=== PATIENT | male | born 1970 | race Caucasian/White ===

== ENCOUNTER 2019-08-28 14:42 | Emergency (ER) | payer MEDICAID ==
[2019-08-28] MEDS ORDERED: Sodium Chloride 0.9% 10 ML Syringe FLUSH PRN (14:51)
[2019-08-28] MEDS ORDERED: Aspirin 81 MG Tab.Chew PO ONE (14:52)
--- NOTE | 2019-08-28 15:02 | EDM.PDOC ---
ED HPI GENERAL MEDICAL PROBLEM - General Chief Complaint: Chest Pain Stated Complaint: CHEST PAIN Time Seen by Provider: 08/28/19 14:45 Source of Information: Reports: Patient, RN Notes Reviewed History Limitations: Reports: No Limitations - History of Present Illness INITIAL COMMENTS - FREE TEXT/NARRATIVE: Patient is a 48-year-old male who presents to the ED for the evaluation of his sudden onset chest pain. Patient notes that 30 minutes prior to arrival to the ER, he was talking outside, when he developed some sharp stabbing type pain to his midsternal area. Patient became nauseated and sweaty with this. Patient states that the pain seems to worsen with deep breathing, and when you put pressure on it, he states that when you stand up, or take pressure off the chest it seems to make it better. He notes he has had this pain before, and it goes away on its own. Patient denies any other sick-like symptoms, fever/chills, shortness of breath or cough, current nausea/vomiting/diarrhea. He denies any other cardiac history like MIs. Mid-Sternal Pain Score (Numeric/FACES): 9 - Related Data Allergies Allergy/AdvReac Type Severity Reaction Status Date / Time Penicillins Allergy Rash Verified 08/28/19 14:47 Past Medical History Endocrine/Metabolic History: Reports: Obesity/BMI 30+ - Infectious Disease History Infectious Disease History: Reports: Chicken Pox - Past Surgical History HEENT Surgical History: Reports: Tonsillectomy GI Surgical History: Reports: Other (See Below) Other GI Surgeries/Procedures: exploratory laparoscopy Social & Family History - Family History Cardiac: Reports: Prior Cardiac Arrest - Tobacco Use Smoking Status *Q: Never Smoker Second Hand Smoke Exposure: No ED ROS GENERAL - Review of Systems Review Of Systems: See Below Constitutional: Reports: Diaphoresis. Denies: Fever, Chills Respiratory: Denies: Shortness of Breath, Cough Cardiovascular: Reports: Chest Pain (mid sternal chest pain). Denies: Dyspnea on Exertion, Lightheadedness, Orthopnea, Palpitations GI/Abdominal: Reports: Nausea. Denies: Abdominal Pain, Constipation, Diarrhea, Vomiting ED EXAM, GENERAL - Physical Exam Exam: See Below Exam Limited By: No Limitations General Appearance: Alert, WD/WN, No Apparent Distress Eye Exam: Bilateral Eye: EOMI, Normal Inspection, PERRL Ears: Normal External Exam Throat/Mouth: Normal Inspection, Normal Lips, Normal Teeth, Normal Gums, Normal Oropharynx, Normal Voice, No Airway Compromise Head: Atraumatic Neck: Normal Inspection Respiratory/Chest: No Respiratory Distress, Lungs Clear, Normal Breath Sounds, No Accessory Muscle Use, Chest Non-Tender Cardiovascular: Normal Peripheral Pulses, Regular Rate, Rhythm, No Edema, No Murmur Peripheral Pulses: 3+: Radial (L), Radial (R) GI/Abdominal: Normal Bowel Sounds, Soft, Non-Tender, No Distention, No Mass Neurological: Alert, Oriented, Normal Cognition, No Motor/Sensory Deficits Psychiatric: Normal Affect, Normal Mood Skin Exam: Warm, Dry, Intact, Normal Color, No Rash EKG INTERPRETATION EKG Date: 08/28/19 Time: 14:44 Rhythm: NSR Rate (Beats/Min): 86 [place]: Normal P-Wave: Present QRS: Normal ST-T: Normal QT: Normal Comparison: NA - No Prior EKG EKG Interpretation Comments: No obvious ischemia or acute ST changes noted, reviewed by myself and Dr. Rios. Course - Vital Signs Last Recorded V/S: Last Vital Signs Temp 97.6 F 08/28/19 14:48 Pulse 87 08/28/19 14:48 Resp 16 08/28/19 14:48 BP 146/90 H 08/28/19 14:48 Pulse Ox 95 08/28/19 14:48 - Orders/Labs/Meds Orders: Active Orders 24 hr Category Date Time Status EKG Documentation Completion [RC] STAT Care 08/28/19 14:51 Active Peripheral IV Care [RC] . DIRECTED Care 08/28/19 14:51 Active Peripheral IV Insertion Adult [OM.PC] Stat Oth 08/28/19 14:51 Ordered Labs: Laboratory Tests 08/28/19 08/28/19 08/28/19 Range/Units 14:50 14:50 14:50 WBC 6.34 (4.23-9.07) K/mm3 RBC 5.20 (4.63-6.08) M/mm3 Hgb 15.5 (13.7-17.5) gm/dl Hct 46.5 (40.1-51.0) % MCV 89.4 (79.0-92.2) fl MCH 29.8 (25.7-32.2) pg MCHC 33.3 (32.2-35.5) g/dl RDW Std Deviation 42.9 (35.1-43.9) fL Plt Count 187 (163-337) K/mm3 MPV 9.8 (9.4-12.3) fl Neut % (Auto) 56.6 (34.0-67.9) % Lymph % (Auto) 30.1 (21.8-53.1) % [place] % (Auto) 9.5 (5.3-12.2) % Eos % (Auto) 3.2 (0.8-7.0) Baso % (Auto) 0.6 (0.1-1.2) % Neut # (Auto) 3.59 (1.78-5.38) K/mm3 Lymph # (Auto) 1.91 (1.32-3.57) K/mm3 [place] # (Auto) 0.60 (0.30-0.82) K/mm3 Eos # (Auto) 0.20 (0.04-0.54) K/mm3 Baso # (Auto) 0.04 (0.01-0.08) K/mm3 PT 10.8 (9.7-12.0) SECONDS INR 0.99 APTT 25 (22-31) SECONDS Sodium 143 (136-145) mEq/L Potassium 4.1 (3.5-5.1) mEq/L Chloride 107 (98-107) mEq/L Carbon Dioxide 25 (21-32) mEq/L Anion Gap 15.1 H (5-15) BUN 22 H (7-18) mg/dL Creatinine 1.2 (0.7-1.3) mg/dL Est Cr Clr Drug Dosing 85.63 mL/min Estimated GFR (MDRD) > 60 (>60) mL/min BUN/Creatinine Ratio 18.3 H (14-18) Glucose 117 H (74-106) mg/dL Calcium 8.7 (8.5-10.1) mg/dL Magnesium 1.8 (1.8-2.4) mg/dl Total Bilirubin 0.6 (0.2-1.0) mg/dL AST 41 H (15-37) U/L ALT 88 H (16-63) U/L Alkaline Phosphatase 70 (46-116) U/L Troponin I < 0.017 (0.00-0.056) ng/mL NT-Pro-B Natriuret Pep (0-125) pg/mL Total Protein 7.4 (6.4-8.2) g/dl Albumin 3.6 (3.4-5.0) g/dl Globulin 3.8 gm/dL Albumin/Globulin Ratio 1.0 (1-2) /09/09 Range/Units 14:50 WBC (4.23-9.07) K/mm3 RBC (4.63-6.08) M/mm3 Hgb (13.7-17.5) gm/dl Hct (40.1-51.0) % MCV (79.0-92.2) fl MCH (25.7-32.2) pg MCHC (32.2-35.5) g/dl RDW Std Deviation (35.1-43.9) fL Plt Count (163-337) K/mm3 MPV (9.4-12.3) fl Neut % (Auto) (34.0-67.9) % Lymph % (Auto) (21.8-53.1) % Row[place] % (Auto) (5.3-12.2) % Eos % (Auto) (0.8-7.0) Baso % (Auto) (0.1-1.2) % Neut # (Auto) (1.78-5.38) K/mm3 Lymph # (Auto) (1.32-3.57) K/mm3 [place] # (Auto) (0.30-0.82) K/mm3 Eos # (Auto) (0.04-0.54) K/mm3 Baso # (Auto) (0.01-0.08) K/mm3 PT (9.7-12.0) SECONDS INR APTT (22-31) SECONDS Sodium (136-145) mEq/L Potassium (3.5-5.1) mEq/L Chloride (98-107) mEq/L Carbon Dioxide (21-32) mEq/L Anion Gap (5-15) BUN (7-18) mg/dL Creatinine (0.7-1.3) mg/dL Est Cr Clr Drug Dosing mL/min Estimated GFR (MDRD) (>60) mL/min BUN/Creatinine Ratio (14-18) Glucose (74-106) mg/dL Calcium (8.5-10.1) mg/dL Magnesium (1.8-2.4) mg/dl Total Bilirubin (0.2-1.0) mg/dL AST (15-37) U/L ALT (16-63) U/L Alkaline Phosphatase (46-116) U/L Troponin I (0.00-0.056) ng/mL NT-Pro-B Natriuret Pep 27 (0-125) pg/mL Total Protein (6.4-8.2) g/dl Albumin (3.4-5.0) g/dl Globulin gm/dL Albumin/Globulin Ratio (1-2) Meds: Medications Discontinued Medications Generic Name Dose Route Start Last Admin Trade Name Freq PRN Reason Stop Dose Admin Aspirin 324 mg 08/28/19 14:52 08/28/19 14:55 Aspirin PO 08/28/19 14:53 324 mg ONETIME ONE Administration Sodium Chloride 10 ml 08/28/19 14:51 08/28/19 14:56 Saline Flush FLUSH 10 ml ASDIRECTED PRN Administration Keep Vein Open - Re-Assessments/Exams Free Text/Narrative Re-Assessment/Exam: 08/28/19 15:01 Patient presents to the ED for the evaluation of his sudden onset midsternal chest pain. Does sound pleuritic in nature, as it seems to worsen with deep breathing. Nonetheless he will have cardiac work-up to include EKG, chest x- ray, laboratory evaluation and have ordered 324 mg aspirin for initial management. 08/28/19 15:41 Labs have returned, and are unremarkable, troponin is also undetectably low. At this time this is likely that this can be more pleuritic pain in nature. We will have him trial ibuprofen, see if this does not help improve symptoms. Departure - Departure Time of Disposition: 15:42 Disposition: Home, Self-Care 01 Condition: Good Clinical Impression: Chest pain, pleuritic Instructions: Nonspecific Chest Pain, Adult, [id number] Referrals: PCP,None [Primary Care Provider] - Forms: ED Department Discharge Additional Instructions: You were evaluated in the ER today regarding your left-sided chest pain. Laboratory evaluation, chest x-ray and EKG were done at today's visit. EKG demonstrates no sign of a heart attack, labs were also not suggestive of any heart attack. Chest x-ray shows no other acute findings. Due to the pain worsening when you take a deep breath, it is most likely this is pleuritic chest pain in nature, which is an inflammation of the lung lining. Treatment of this will be anti-inflammatories, please take 600 mg ibuprofen every 6 hours as needed for further pain relief. Do not exceed 3200 mg of ibuprofen in a 24-hour time span. If you have not already done so, it would be to your benefit to establish with a primary care provider, and think about getting a cardiac stress test done to further rule out any other cardiac etiology. Please call [phone] to establish care with a primary care provider of choice. Please return to the ER at any time if your symptoms change or worsen. Sepsis Event Note (ED) - Evaluation Sepsis Screening Result: No Definite Risk - Focused Exam Vital Signs: Vital Signs Temp Pulse Resp BP Pulse Ox 08/28/19 14:48 97.6 F 87 16 146/90 H 95 - My Orders Last 24 Hours: My Active Orders 08/28/19 14:51 EKG Documentation Completion [RC] STAT Peripheral IV Care [RC] . DIRECTED Peripheral IV Insertion Adult [OM.PC] Stat - Assessment/Plan Last 24 Hours: My Active Orders 08/28/19 14:51 EKG Documentation Completion [RC] STAT Peripheral IV Care [RC] . DIRECTED Peripheral IV Insertion Adult [OM.PC] Stat
--- NOTE | 2019-08-28 15:14 | CR ---
Chest: Frontal view of the chest was obtained. Comparison: No previous chest imaging. Heart size and mediastinum are normal. Lungs are clear. Bony structures are grossly intact. Impression: 1. Nothing acute is seen on frontal chest x-ray. Diagnostic code #1 This report was dictated in MDT
== END 2019-08-28 16:10 | disposition home or self-care (01) ==
LOC: JD.ED 14:42
DX: R07.81 Pleurodynia (principal); E66.9 Obesity, unspecified; Z68.42 Body mass index [BMI] 45.0-49.9, adult; Z88.0 Allergy status to penicillin
CPT/HCPCS: 36415; 71045; 80053; 83735; 83880; 84484; 85025; 85610; 85730; 93005; 99285; A9270; 93010; 99284

== ENCOUNTER 2019-11-29 06:51 | Day surgery (SDC) | payer MEDICAID ==
[~2019-11-29 06:51] MED LIST: Lactated Ringers 1,000 ML IV SCH; Lidocaine 1%/Sod Bicarbonate in NS 8.4% 1 ML Syringe IDERM PRN; Sodium Chloride 0.9% 10 ML Syringe FLUSH PRN
[2019-11-29] MEDS ORDERED: Propofol 200 MG/20 ML SDV ONE ×2 (07:04→08:02)
[2019-11-29] MEDS ORDERED: Lidocaine 1% 4 ML ONE (07:05)
[2019-11-29] MEDS ORDERED: fentaNYL 100 MCG/2 ML SDV ONE (07:06)
[2019-11-29] MEDS ORDERED: Midazolam 1 MG/ML 2 ML SDV ONE ×2 (07:06→08:11)
[2019-11-29] MEDS ORDERED: Bupivacaine 0.5%/EPINEPHrine 1:200,000 50 ML MDV ONE (07:07)
[2019-11-29] MEDS ORDERED: Lidocaine 1% with EPINEPHrine 1:100,000 20 ML MDV ONE (07:07)
--- NOTE | 2019-11-29 07:19 | PCM.PREANE ---
Preanesthetic Assessment - Anesthesia/Transfusion/Family Hx Anesthesia History: Prior Anesthesia Without Reaction Family History of Anesthesia Reaction: No Transfusion History: No Prior Transfusion(s) - Review of Systems General: No Symptoms Pulmonary: No Symptoms Cardiovascular: No Symptoms Gastrointestinal: No Symptoms Neurological: No Symptoms Other: Reports: None - Physical Assessment NPO Status Date: 11/28/19 NPO Status Time: 22:00 ASA Class: 2 Mental Status: Alert & Oriented x3 Airway Class: Mallampati = 2 Dentition: Reports: Normal Dentition Thyro-Mental Finger Breadths: 3 Mouth Opening Finger Breadths: 3 ROM/Head Extension: Full Lungs: Clear to Auscultation, Normal Respiratory Effort Cardiovascular: Regular Rate, Regular Rhythm - Allergies Allergies/Adverse Reactions: Allergies Allergy/AdvReac Type Severity Reaction Status Date / Time Penicillins Allergy Rash Verified 11/28/19 13:48 - Acknowledgements Anesthesia Type Planned: MAC Pt an Appropriate Candidate for the Planned Anesthesia: Yes Alternatives and Risks of Anesthesia Discussed w Pt/Guardian: Yes Pt/Guardian Understands and Agrees with Anesthesia Plan: Yes PreAnesthesia Questionnaire HEENT History: Reports: Impaired Vision, Other (See Below) Other HEENT History: wears glasses Cardiovascular History: Reports: None, Hypertension, SOB on Exertion Respiratory History: Reports: SOB Gastrointestinal History: Reports: GERD, Other (See Below) Genitourinary History: Reports: Other (See Below) Other Genitourinary History: frequency PATROL AGENT History: Reports: None Musculoskeletal History: Reports: None Neurological History: Reports: None Psychiatric History: Reports: None Endocrine/Metabolic History: Reports: Obesity/BMI 30+ Hematologic History: Reports: None Immunologic History: Reports: None Oncologic (Cancer) History: Reports: None - Infectious Disease History Infectious Disease History: Reports: Chicken Pox - Past Surgical History Head Surgeries/Procedures: Reports: None HEENT Surgical History: Reports: Tonsillectomy Cardiovascular Surgical History: Reports: None Respiratory Surgical History: Reports: None GI Surgical History: Reports: Colonoscopy, EGD, Other (See Below) Other GI Surgeries/Procedures: exploratory laparotomy- found a fat mass in small intestine, was removed 2009 Female Surgical History: Reports: Breast Implant Male Surgical History: Reports: None Endocrine Surgical History: Reports: None Neurological Surgical History: Reports: None Musculoskeletal Surgical History: Reports: None Oncologic Surgical History: Reports: None Dermatological Surgical History: Reports: None - SUBSTANCE USE Smoking Status *Q: Never Smoker Days Per Week of Alcohol Use: 1 Number of Drinks Per Day: 2 Total Drinks Per Week: 2 Recreational Drug Use History: No - HOME MEDS Home Medications: Home Meds . [No Known Home Meds] 11/28/19 [History] - CURRENT (IN HOUSE) MEDS Current Meds: Current Medications Lactated Ringer's (Ringers, Lactated) 1,000 mls @ 125 mls/hr IV ASDIRECTED VENECIA Stop: 11/29/19 23:00 Influenza Virus Vaccine (Fluzone Quad Syringe) 60 mcg IM .ONCE ONE Stop: 11/29/19 09:01 Lidocaine/Sodium Bicarbonate (Buffered Lidocaine 1% In Ns 8.4%) 0.25 ml IDERM ONETIME PRN PRN Reason: Prior to IV Start Stop: 11/29/19 18:00 Sodium Chloride (Saline Flush) 10 ml FLUSH ASDIRECTED PRN PRN Reason: Keep Vein Open Stop: 11/29/19 18:00 Discontinued Medications Bupivacaine HCl/Epinephrine Bitart (Marcaine 0.5%/Epinephrine 1:200,000) Confirm Administered Dose 50 ml .ROUTE .STK-MED ONE Stop: 11/29/19 07:08 Fentanyl (Sublimaze) Confirm Administered Dose 100 mcg .ROUTE .STK-MED ONE Stop: 11/29/19 07:07 Lidocaine HCl (Xylocaine-Mpf 1%) Confirm Administered Dose 4 mls @ as directed .ROUTE .STK-MED ONE Stop: 11/29/19 07:06 Lidocaine/Epinephrine (Xylocaine 1% With Epinephrine 1:100,000) Confirm Administered Dose 40 ml .ROUTE .STK-MED ONE Stop: 11/29/19 07:08 Midazolam HCl (Versed 1 Mg/Ml) Confirm Administered Dose 2 mg .ROUTE .STK-MED ONE Stop: 11/29/19 07:07 Propofol (Diprivan 20 Ml) Confirm Administered Dose 200 mg .ROUTE .STK-MED ONE Stop: 11/29/19 07:05
[2019-11-29] MEDS ORDERED: Ketorolac 30 MG/ML SDV ONE (08:35)
[2019-11-29] MEDS ORDERED: Ondansetron 4 MG/2 ML SDV ONE (08:35)
--- NOTE | 2019-11-29 08:51 | PCM48HPAN ---
Post Anesthesia Note - EVALUATION WITHIN 48HRS OF ANESTHETIC Vital Signs in Normal Range: Yes Patient Participated in Evaluation: Yes Respiratory Function Stable: Yes Airway Patent: Yes Cardiovascular Function Stable: Yes Hydration Status Stable: Yes Pain Control Satisfactory: Yes Nausea and Vomiting Control Satisfactory: Yes Mental Status Recovered: Yes Vital Signs: Last Vital Signs Temp 36.1 C 11/29/19 07:24 Pulse 92 11/29/19 07:24 Resp 20 11/29/19 07:24 BP 150/94 H 11/29/19 07:24 Pulse Ox
--- NOTE | 2019-11-29 08:59 | PCM.PRNOTE ---
- Free Text/Narrative Note: Date: 11/29/2019 Operation: excision of right groin lipoma Surgeon: Shin Coats MD Operative findings: ~8 cm well circumscribed lipomatous mass in the superficial area of the right groin, with vascular pedicle. 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 Detailed Report: The patient was taken to the operating room and placed supine on the table. Time out was performed and monitored anesthesia care initiated. An ellipse was marked over the lesion, and 20 cc 0.5% marcaine was injected intradermally along this line overlying the palpable lesion. A 15 blade scalpel was used to incise down to subcutaneous fat along the marked ellipse. The overlying skin was excised. The lipoma easily from surrrounding tissue except at the apical region, where it tapered down to a diameter of about 1 cm and extended into deep er tissue superiorly. This did not seem to be in close proximity to the femoral vessels, and did not appear to be a femoral hernia as there was no peritoneal sac. The apical area appeared to be a vascular pedicle. This was clamped and ligated with a 0 silk suture, and the lipoma was amputated. The specimen was sent for pathologic analysis. The wound bed was clean and dry. The deep dermal layer was closed with interrupted 3-0 vicryl silk sutures. The skin was closed with an absorbable running subcuticular stitch and dressed with dermabond. The patient tolerated the procedure well.
[2019-11-29] MEDS ORDERED: FLU VACC QS2020-21(6MOS UP)/PF 60 MCG/0.5 ML SYRINGE IM ONE (09:00)
== END 2019-11-29 09:38 | disposition home or self-care (01) ==
LOC: JD.SDS 06:51
PROVIDERS: ATTEND Surgery
DX: D17.1 Benign lipomatous neoplasm of skin and subcutaneous tissue of trunk (principal); R03.0 Elevated blood-pressure reading, without diagnosis of hypertension; E66.9 Obesity, unspecified; I10 Essential (primary) hypertension; Z98.890 Other specified postprocedural states; Z01.812 Encounter for preprocedural laboratory examination; Z20.828 Contact with and (suspected) exposure to other viral communicable diseases; Z68.42 Body mass index [BMI] 45.0-49.9, adult; Z88.0 Allergy status to penicillin
CPT/HCPCS: 21931; 90686; J1885; J2001; J2250; J2405; J2704; J3010; J3490; J7120; 00400; G0008

== ENCOUNTER 2019-12-01 11:53 | Emergency (ER) | payer MEDICAID ==
[2019-12-01] MEDS ORDERED: Lidocaine 1% 10 ML MDV INJECT ONE (13:50)
--- NOTE | 2019-12-01 13:57 | EDM.PDOC ---
ED HPI GENERAL MEDICAL PROBLEM - General Chief Complaint: Abdominal Pain Stated Complaint: LOWER ABDOMINAL PAIN/POST SURGERY Time Seen by Provider: 12/01/19 12:12 Source of Information: Reports: Patient History Limitations: Reports: No Limitations - History of Present Illness INITIAL COMMENTS - FREE TEXT/NARRATIVE: Patient is a 49-year-old male presenting to the emergency department with concerns of a possible infection to his surgical wound on his right upper thigh. Patient also was concerned that he had a transient episode of left lower quadrant abdominal pain prior to coming to the ER. This has since resolved and he has had no recurrence of pain. He had a large lipoma removed 2 days ago with general surgeon, Dr. Coats. He states that since that time it is been getting progressively more red swollen, and painful. He thought that the abdominal pain he had earlier may be related to an infection forming in the wound. He denies any fever or chills. Right Groin Pain Score (Numeric/FACES): 1 - Related Data Allergies Allergy/AdvReac Type Severity Reaction Status Date / Time Penicillins Allergy Rash Verified 12/01/19 12:07 Home Meds: Home Meds oxyCODONE 5 mg PO Q4H PRN #10 tab 11/29/19 [Rx] Acetaminophen [Tylenol] 650 mg PO Q4H PRN 12/01/19 [History] Clindamycin HCl 450 mg PO Q8H #50 capsule 12/01/19 [Rx] Past Medical History HEENT History: Reports: Impaired Vision, Other (See Below) Other HEENT History: wears glasses Cardiovascular History: Reports: Hypertension, SOB on Exertion Respiratory History: Reports: SOB Gastrointestinal History: Reports: GERD Genitourinary History: Reports: Other (See Below) Other Genitourinary History: frequency RESIDENTIAL INSURANCE INSPECTOR History: Reports: None Musculoskeletal History: Reports: None Neurological History: Reports: None Psychiatric History: Reports: None Endocrine/Metabolic History: Reports: Obesity/BMI 30+ Hematologic History: Reports: None Immunologic History: Reports: None Oncologic (Cancer) History: Reports: None - Infectious Disease History Infectious Disease History: Reports: Chicken Pox - Past Surgical History HEENT Surgical History: Reports: Tonsillectomy GI Surgical History: Reports: Colonoscopy, EGD, Other (See Below) Other GI Surgeries/Procedures: exploratory laparotomy- found a fat mass in small intestine, was removed 2008, lipoma removal to R groin Social & Family History - Family History Family Medical History: Noncontributory Cardiac: Reports: Prior Cardiac Arrest - Tobacco Use Smoking Status *Q: Never Smoker Second Hand Smoke Exposure: No - Caffeine Use Caffeine Use: Reports: Soda - Recreational Drug Use Recreational Drug Use: No ED ROS GENERAL - Review of Systems Review Of Systems: See Below Constitutional: Reports: No Symptoms. Denies: Fever, Chills, Weakness HEENT: Reports: No Symptoms Respiratory: Reports: No Symptoms Cardiovascular: Reports: Dyspnea on Exertion Endocrine: Reports: No Symptoms GI/Abdominal: Reports: Abdominal Pain. Denies: Diarrhea, Nausea, Vomiting : Reports: No Symptoms Musculoskeletal: Reports: No Symptoms Skin: Reports: Other (Redness and swelling to surgical incision of the right upper thigh.) Neurological: Reports: No Symptoms Psychiatric: Reports: No Symptoms Hematologic/Lymphatic: Reports: No Symptoms Immunologic: Reports: No Symptoms ED EXAM, SKIN/RASH Exam: See Below General Appearance: Alert, WD/WN, No Apparent Distress Respiratory/Chest: No Respiratory Distress, Lungs Clear, Normal Breath Sounds, No Accessory Muscle Use, Chest Non-Tender Cardiovascular: Normal Peripheral Pulses, Regular Rate, Rhythm, No Edema, No Gallop, No JVD, No Murmur, No Rub GI/Abdominal: Normal Bowel Sounds, Soft, Non-Tender, No Organomegaly, No Distention, No Abnormal Bruit, No Mass Psychiatric: Normal Affect, Normal Mood Skin: Other (10 cm horizontal and incision to the right upper thigh. Wound is surgically glued and edges are well approximated. There is a 20 cm x 10 cm area of, Redness, and induration underlying the incision.) Course - Vital Signs Last Recorded V/S: Last Vital Signs Temp 97.0 F 12/01/19 12:04 Pulse 91 12/01/19 12:04 Resp 19 12/01/19 12:04 BP 126/100 H 12/01/19 12:04 Pulse Ox 95 12/01/19 12:04 - Orders/Labs/Meds Orders: Active Orders 24 hr Category Date Time Status Pelvis wo Cont [CT] Stat Exams 12/01/19 12:22 Taken Labs: Laboratory Tests 12/01/19 12/01/19 Range/Units 12:30 12:30 WBC 7.17 (4.23-9.07) K/mm3 RBC 5.19 (4.63-6.08) M/mm3 Hgb 15.5 (13.7-17.5) gm/dl Hct 45.5 (40.1-51.0) % MCV 87.7 (79.0-92.2) fl MCH 29.9 (25.7-32.2) pg MCHC 34.1 (32.2-35.5) g/dl RDW Std Deviation 41.9 (35.1-43.9) fL Plt Count 171 (163-337) K/mm3 MPV 9.5 (9.4-12.3) fl Neut % (Auto) 63.1 (34.0-67.9) % Lymph % (Auto) 23.6 (21.8-53.1) % [place] % (Auto) 10.6 (5.3-12.2) % Eos % (Auto) 2.0 (0.8-7.0) Baso % (Auto) 0.4 (0.1-1.2) % Neut # (Auto) 4.53 (1.78-5.38) K/mm3 Lymph # (Auto) 1.69 (1.32-3.57) K/mm3 [place] # (Auto) 0.76 (0.30-0.82) K/mm3 Eos # (Auto) 0.14 (0.04-0.54) K/mm3 Baso # (Auto) 0.03 (0.01-0.08) K/mm3 Sodium 137 (136-145) mEq/L Potassium 3.8 (3.5-5.1) mEq/L Chloride 101 (98-107) mEq/L Carbon Dioxide 25 (21-32) mEq/L Anion Gap 14.8 (5-15) BUN 16 (7-18) mg/dL Creatinine 1.2 (0.7-1.3) mg/dL Est Cr Clr Drug Dosing 84.67 mL/min Estimated GFR (MDRD) > 60 (>60) mL/min BUN/Creatinine Ratio 13.3 L (14-18) Glucose 117 H (74-106) mg/dL Calcium 8.4 L (8.5-10.1) mg/dL Total Bilirubin 0.9 (0.2-1.0) mg/dL AST 29 (15-37) U/L ALT 64 H (16-63) U/L Alkaline Phosphatase 76 (46-116) U/L C-Reactive Protein 3.0 H* (<1.0) mg/dL Total Protein 7.4 (6.4-8.2) g/dl Albumin 3.6 (3.4-5.0) g/dl Globulin 3.8 gm/dL Albumin/Globulin Ratio 1.0 (1-2) Meds: Medications Discontinued Medications Generic Name Dose Route Start Last Admin Trade Name Rafaela PRN Reason Stop Dose Admin Lidocaine HCl 10 ml 12/01/19 13:50 12/01/19 15:16 Xylocaine 1% INJECT 12/01/19 13:51 10 ml ONETIME ONE Administration - Re-Assessments/Exams Free Text/Narrative Re-Assessment/Exam: Patient is a 49-year-old male presenting to the emergency department with concerns of possible infection to an incision on his right upper thigh. He did have some transient left lower quadrant abdominal pain, however this quickly resolved and he has no further tenderness or pain in this area at time of exam. There is a 10 cm incision in the right upper thigh with an approximate 20 cm x 10 cm surrounding area of redness and induration. I have ordered blood work including CBC, CMP, CRP, and CT of the pelvis. 12/01/19 1350 Hematology was grossly unremarkable. CT scan of the pelvis showed a 4 cm abscess in the anterior right thigh subcutaneous fat. Spoke with Dr. Coats, the general surgeon on-call. He will come in and see the patient and perform I&D if needed. 12/01/19 14:44 Dr. Coats was here to see the patient. He did open up the incision. He has sent a prescription for antibiotics and discuss dressing changes with the patient. We will discharge the patient home with instructions to follow-up as with Dr. Coats. Discharge instructions as documented. Departure - Departure Time of Disposition: 14:45 Disposition: Home, Self-Care 01 Condition: Good Clinical Impression: Postoperative wound infection - Discharge Information *PRESCRIPTION DRUG MONITORING PROGRAM REVIEWED*: No *COPY OF PRESCRIPTION DRUG MONITORING REPORT IN PATIENT NATY: No Prescriptions: Clindamycin HCl 450 mg PO Q8H #50 capsule Instructions: Wound Infection Referrals: PCP,None [Primary Care Provider] - Forms: ED Department Discharge Additional Instructions: You were seen in the emergency department today with concerns of possible infection to the incision on your right upper thigh. CT scan did show a collection of fluid beneath the surface. Dr. Coats came in and open the area, drained the fluid, and applied sterile dressing. He has sent a prescription for clindamycin. Take this as prescribed. Follow the instructions for dressing changes as discussed with Dr. Coats. Recommend follow-up with him in the clinic as needed. Return to the ER as needed. Sepsis Event Note (ED) - Evaluation Sepsis Screening Result: No Definite Risk - My Orders Last 24 Hours: My Active Orders 12/01/19 12:22 Pelvis wo Cont [CT] Stat - Assessment/Plan Last 24 Hours: My Active Orders 12/01/19 12:22 Pelvis wo Cont [CT] Stat
--- NOTE | 2019-12-01 14:38 | PCM.CONS ---
H&P History of Present Illness - General Date of Service: 12/01/19 Admit Problem/Dx: post op infection Source of Information: Patient History Limitations: Reports: No Limitations - History of Present Illness Other HPI/Comments: Patient returns to hospital 48 hours after surgical removal of large right groin lipoma. He had called the clinic yesterday with concern about the wound being swollen and red. He denies fever or significant pain. In the ER, lab work is unremarkable, and CT of the pelvis shows fluid and air filling the dissection space raising concern for abscess. Right Groin Pain Score (Numeric/FACES): 1 - Related Data Allergies/Adverse Reactions: Allergies Allergy/AdvReac Type Severity Reaction Status Date / Time Penicillins Allergy Rash Verified 12/01/19 12:07 Home Medications: Home Meds oxyCODONE 5 mg PO Q4H PRN #10 tab 11/29/19 [Rx] Acetaminophen [Tylenol] 650 mg PO Q4H PRN 12/01/19 [History] Clindamycin HCl 450 mg PO Q8H #50 capsule 12/01/19 [Rx] Past Medical History HEENT History: Reports: Impaired Vision, Other (See Below) Other HEENT History: wears glasses Cardiovascular History: Reports: Hypertension, SOB on Exertion Respiratory History: Reports: SOB Gastrointestinal History: Reports: GERD Genitourinary History: Reports: Other (See Below) Other Genitourinary History: frequency MANAGER FORMS History: Reports: None Musculoskeletal History: Reports: None Neurological History: Reports: None Psychiatric History: Reports: None Endocrine/Metabolic History: Reports: Obesity/BMI 30+ Hematologic History: Reports: None Immunologic History: Reports: None Oncologic (Cancer) History: Reports: None - Infectious Disease History Infectious Disease History: Reports: Chicken Pox - Past Surgical History HEENT Surgical History: Reports: Tonsillectomy GI Surgical History: Reports: Colonoscopy, EGD, Other (See Below) Other GI Surgeries/Procedures: exploratory laparotomy- found a fat mass in small intestine, was removed 2008, lipoma removal to R groin Social & Family History - Family History Family Medical History: Noncontributory Cardiac: Reports: Prior Cardiac Arrest - Tobacco Use Smoking Status *Q: Never Smoker Second Hand Smoke Exposure: No - Caffeine Use Caffeine Use: Reports: Soda - Recreational Drug Use Recreational Drug Use: No H&P Review of Systems - Review of Systems: Review Of Systems: See Below General: Reports: No Symptoms HEENT: Reports: No Symptoms Pulmonary: Reports: No Symptoms Cardiovascular: Reports: No Symptoms Gastrointestinal: Reports: Abdominal Pain Genitourinary: Reports: No Symptoms Musculoskeletal: Reports: No Symptoms Skin: Reports: Erythema Psychiatric: Reports: No Symptoms Neurological: Reports: No Symptoms Hematologic/Lymphatic: Reports: No Symptoms Immunologic: Reports: No Symptoms Exam - Exam Exam: See Below - Vital Signs Vital Signs: Last Vital Signs Temp 36.1 C 12/01/19 12:04 Pulse 91 12/01/19 12:04 Resp 19 12/01/19 12:04 BP 126/100 H 12/01/19 12:04 Pulse Ox 95 12/01/19 12:04 Weight: 158.757 kg - Exam General: Alert, Oriented, Cooperative HEENT: Conjunctiva Clear Neck: Supple Lungs: Normal Respiratory Effort Cardiovascular: Regular Rate Skin: Wound, Incision, Other (erythema surrounding surgical incision, no drainage, no calor, with some fluctuance) Neuro Extensive - Mental Status: Alert, Oriented x3 Psychiatric: Normal Mood - Patient Data Lab Results Last 24 hrs: Laboratory Results - last 24 hr 12/01/19 12/01/19 Range/Units 12:30 12:30 WBC 7.17 (4.23-9.07) K/mm3 RBC 5.19 (4.63-6.08) M/mm3 Hgb 15.5 (13.7-17.5) gm/dl Hct 45.5 (40.1-51.0) % MCV 87.7 (79.0-92.2) fl MCH 29.9 (25.7-32.2) pg MCHC 34.1 (32.2-35.5) g/dl RDW Std Deviation 41.9 (35.1-43.9) fL Plt Count 171 (163-337) K/mm3 MPV 9.5 (9.4-12.3) fl Neut % (Auto) 63.1 (34.0-67.9) % Lymph % (Auto) 23.6 (21.8-53.1) % [place] % (Auto) 10.6 (5.3-12.2) % Eos % (Auto) 2.0 (0.8-7.0) Baso % (Auto) 0.4 (0.1-1.2) % Neut # (Auto) 4.53 (1.78-5.38) K/mm3 Lymph # (Auto) 1.69 (1.32-3.57) K/mm3 [place] # (Auto) 0.76 (0.30-0.82) K/mm3 Eos # (Auto) 0.14 (0.04-0.54) K/mm3 Baso # (Auto) 0.03 (0.01-0.08) K/mm3 Sodium 137 (136-145) mEq/L Potassium 3.8 (3.5-5.1) mEq/L Chloride 101 (98-107) mEq/L Carbon Dioxide 25 (21-32) mEq/L Anion Gap 14.8 (5-15) BUN 16 (7-18) mg/dL Creatinine 1.2 (0.7-1.3) mg/dL Est Cr Clr Drug Dosing 84.67 mL/min Estimated GFR (MDRD) > 60 (>60) mL/min BUN/Creatinine Ratio 13.3 L (14-18) Glucose 117 H (74-106) mg/dL Calcium 8.4 L (8.5-10.1) mg/dL Total Bilirubin 0.9 (0.2-1.0) mg/dL AST 29 (15-37) U/L ALT 64 H (16-63) U/L Alkaline Phosphatase 76 (46-116) U/L C-Reactive Protein 3.0 H* (<1.0) mg/dL Total Protein 7.4 (6.4-8.2) g/dl Albumin 3.6 (3.4-5.0) g/dl Globulin 3.8 gm/dL Albumin/Globulin Ratio 1.0 (1-2) Result Diagrams: 12/01/19 12:30 12/01/19 12:30 Sepsis Event Note - Evaluation Sepsis Screening Result: No Definite Risk - Focused Exam Vital Signs: Vital Signs Temp Pulse Resp BP Pulse Ox 12/01/19 12:04 36.1 C 91 19 126/100 H 95 Consult PN Assessment/Plan Procedures: Procedures ASSAY OF MAGNESIUM (08/28/19) ASSAY OF NATRIURETIC PEPTIDE (08/28/19) ASSAY OF TROPONIN QUANT (08/28/19) COMPLETE CBC W/AUTO DIFF WBC (08/28/19) COMPREHEN METABOLIC PANEL (08/28/19) ELECTROCARDIOGRAM TRACING (08/28/19) EMERGENCY DEPT VISIT (08/28/19) PROTHROMBIN TIME (08/28/19) ROUTINE VENIPUNCTURE (08/28/19) SARS-COV2 COVID-19 AMP PRB (11/26/19) THROMBOPLASTIN TIME PARTIAL (08/28/19) US LMTD JT/NONVASC XTR STRUX (04/06/18) X-RAY EXAM CHEST 1 VIEW (08/28/19) Problem List Initiated/Reviewed/Updated: Yes Plan: Wound anesthetized and opened about 1 inch at lateral aspect at the bedside. Odorless serosanguinous fluid was drained. No clot or significant hematoma appreciated. No purulence. Fluid and air were expressed manually, and additional fluid was aspirated with a syringe using a large gauge needle. The opening at the wound was packed superficially and a pressure dressing applied. Although I think the presentation is more consistent with a post-op seroma given the large subcutaneous defect after lipoma removal, I think it is prudent to do twice daily dressing changes and prescribe a short course of antibiotics as there was significant surrounding erythema around the incision. Requesting Provider: Kyree Date Consult Requested: 12/01/19 Reason for Consult: post op issue Patient History Reviewed: Yes Admission H&P Reviewed: Yes Notified Requestor: Yes
--- NOTE | 2020-01-01 11:17 | CT ---
PROCEDURE INFORMATION: Exam: CT Pelvis Without Contrast Exam date and time: 12/01/2019 12:27 PM Age: 49 years old Clinical indication: Pain; Other: Redness and swelling RT upper thigh/groin; Prior surgery; Surgery date: Post-operative (0-2 days); Surgery type: Lipoma removal on upper right thigh/groin area TECHNIQUE: Imaging protocol: Computed tomography images of the pelvis without contrast. COMPARISON: No relevant prior studies available. FINDINGS: Bowel: Visualized small bowel and colon are unremarkable. Appendix: Normal appendix. Intraperitoneal space: No ascites. Lymph nodes: No adenopathy. Bladder: Normal. Reproductive: Normal prostate and seminal vesicles. Bones/joints: Unremarkable. No acute fracture. No dislocation. Soft tissues: Within the subcutaneous fat of the proximal anterior right thigh there is a partially airfilled fluid collection measuring up to 4 cm associated with infiltration of the surrounding fat. There is no definite communication traversing the skin. IMPRESSION: 4 cm abscess in the anterior right thigh subcutaneous fat. No other suspicious findings. Thank you for allowing us to participate in the care of your patient. Dictated and Authenticated by: El Fuentes MD 01/01/2020 7:23 AM Central Time ([place] & [place]) JARRELL
== END 2019-12-01 15:13 | disposition home or self-care (01) ==
LOC: JD.ED 11:53
DX: T81.49XA Infection following a procedure, other surgical site, initial encounter (principal); I10 Essential (primary) hypertension; E66.9 Obesity, unspecified; Z68.41 Body mass index [BMI] 40.0-44.9, adult; Z88.0 Allergy status to penicillin
CPT/HCPCS: 36415; 72192; 80053; 85025; 86140; 99283; J2001

== ENCOUNTER 2020-07-22 07:50 | Emergency (ER) | payer MEDICAID ==
[2020-07-22] MEDS ORDERED: Albuterol/Ipratropium 3.0-0.5 MG/3 ML Neb Soln NEB PRN (08:30)
--- NOTE | 2020-07-22 08:30 | EDM.PDOC ---
ED HPI GENERAL MEDICAL PROBLEM - General Chief Complaint: Respiratory Problem Stated Complaint: SOB/ABDOMINAL PAIN Time Seen by Provider: 07/22/20 08:21 Source of Information: Reports: Patient History Limitations: Reports: No Limitations - History of Present Illness INITIAL COMMENTS - FREE TEXT/NARRATIVE: 49-year-old male presents to the ED with a host of nonspecific complaints. He is aware of constant feeling of need to clear his throat. He has a nonproductive cough. Does feel short of breath on minimal exertion did not sleep well last night due to dyspnea. He has no history of seasonal allergies. No fever or chills. He is a non-smoker. Complaining also some pain in the right lower quadrant of the abdomen with coughing. He has no history of asthma or COPD. He has had both of his COVID-19 shots without any problems. Onset: Gradual Onset Date: 07/20/20 (Increasing dyspnea over the last few days.) Duration: Day(s):, Getting Worse Location: Reports: Neck (Throat congested feels congested.), Chest (Dyspnea with wheezing) Quality: Reports: Other (Dyspnea.) Severity: Moderate Improves with: Reports: Rest Worsens with: Reports: Movement Context: Reports: Other (Spontaneous occurrence.). Denies: Activity, Exercise, Lifting, Sick Contact, Trauma Associated Symptoms: Reports: Cough, Loss of Appetite, Malaise, Shortness of Breath. 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 (see below) (None.) Bilateral Lower Chest Pain Score (Numeric/FACES): 5 - Related Data Allergies Allergy/AdvReac Type Severity Reaction Status Date / Time Penicillins Allergy Rash Verified 07/22/20 08:05 Home Meds: Home Meds Omeprazole 20 mg PO DAILY 07/22/20 [History] predniSONE [Prednisone] 20 mg PO ASDIRECTED #15 tablet 07/22/20 [Rx] Past Medical History HEENT History: Reports: Impaired Vision, Other (See Below) Other HEENT History: wears glasses Cardiovascular History: Reports: Hypertension, SOB on Exertion Respiratory History: Reports: SOB Gastrointestinal History: Reports: GERD Genitourinary History: Reports: Other (See Below) Other Genitourinary History: frequency with nocturia x3. TECHNOLOGY DIRECTOR History: Reports: None Musculoskeletal History: Reports: None Neurological History: Reports: Head Trauma Psychiatric History: Reports: Anxiety Endocrine/Metabolic History: Reports: Obesity/BMI 30+ Hematologic History: Reports: None Immunologic History: Reports: None Oncologic (Cancer) History: Reports: None - Infectious Disease History Infectious Disease History: Reports: C-Difficile, Chicken Pox, Influenza - Past Surgical History HEENT Surgical History: Reports: Tonsillectomy GI Surgical History: Reports: Colonoscopy, EGD, Other (See Below) Other GI Surgeries/Procedures: exploratory laparotomy- found a fat mass in small intestine, was removed 2008, lipoma removal to R groin Social & Family History - Family History Family Medical History: No Pertinent Family History Cardiac: Reports: Prior Cardiac Arrest - Tobacco Use Tobacco Use Status *Q: Never Tobacco User Second Hand Smoke Exposure: No - Caffeine Use Caffeine Use: Reports: Coffee - Recreational Drug Use Recreational Drug Use: No - Living Situation & Occupation Living situation: Reports: Single Occupation: Unemployed ED ROS GENERAL - Review of Systems Review Of Systems: See Below Constitutional: Reports: Malaise, Weakness, Fatigue, Decreased Appetite. Denies: Fever, Chills HEENT: Reports: Throat Swelling (Throat feels congested and full. Has to feel like he has to clear his throat frequently.) Respiratory: Reports: Shortness of Breath, Wheezing, Cough. Denies: Pleuritic Chest Pain, Sputum, Hemoptysis Cardiovascular: Reports: Blood Pressure Problem, Dyspnea on Exertion. Denies: Chest Pain, Claudication, Edema, Lightheadedness, Orthopnea Endocrine: Reports: Fatigue GI/Abdominal: Reports: Abdominal Pain (Right lower quadrant of the abdomen with coughing.), Decreased Appetite, Other (History of GERD. Uses omeprazole daily.). Denies: Constipation, Diarrhea, Difficulty Swallowing, Distension, Flatus, Hematemesis, Hematochezia, Melena, Mucous in Stool : Reports: Frequency, Other Musculoskeletal: Reports: Neck Pain, Shoulder Pain (At times.), Back Pain ( Knee sips), Joint Pain (Nocturia x3.) Skin: Reports: No Symptoms Neurological: Reports: No Symptoms. Denies: Confusion, Dizziness, Headache, Numbness, Seizure, Syncope, Tingling, Trouble Speaking Psychiatric: Reports: No Symptoms Hematologic/Lymphatic: Reports: No Symptoms Immunologic: Reports: No Symptoms ED EXAM, GENERAL - Physical Exam Exam: See Below Exam Limited By: No Limitations General Appearance: Alert, WD/WN, No Apparent Distress, Other (Temperature is 36.3 degrees with a heart rate 84 and sinus. Respiratory is 18 with O2 sats of 95% on room air. BP 152/101.) Eye Exam: Bilateral Eye: Normal Inspection, PERRL Throat/Mouth: Normal Inspection, Normal Lips, Normal Teeth, Normal Oropharynx, Other Head: Atraumatic, Normocephalic Neck: Normal Inspection, Supple, Non-Tender, Full Range of Motion. No: Carotid Bruit, Lymphadenopathy (L), Lymphadenopathy (R), Thyromegaly Respiratory/Chest: No Respiratory Distress, Chest Non-Tender, Decreased Breath Sounds, Wheezing (Mild wheezing throughout the posterior lung paulson.). No: Lungs Clear, Normal Breath Sounds Cardiovascular: Normal Peripheral Pulses (Mildly decreased breath sounds to both posterior lungs due to the patient's size.), Regular Rate, Rhythm, No Edema, No Gallop, No Murmur, No Rub Peripheral Pulses: 2+: Posterior Tibial (L), Posterior Tibial (R), Dorsalis Pedis (L), Dorsalis Pedis (R) GI/Abdominal: Normal Bowel Sounds, Soft, Non-Tender, No Organomegaly, No Abnormal Bruit, No Mass, Pelvis Stable, Other (Morbidly obese. Clinically has bilateral inguinal hernias with coughing but nothing that is going to require surgery in the near future. He has diastases recti of his mid R mid upper abdomen.) Back Exam: Normal Inspection, Full Range of Motion, Paraspinal Tenderness. No: CVA Tenderness (L), CVA Tenderness (R), Vertebral Tenderness Extremities: Normal Inspection (Mild paraspinal tenderness around lumbar spine), Normal Range of Motion, Non-Tender, No Pedal Edema Neurological: Alert, Oriented, CN II-XII Intact, Normal Cognition Psychiatric: Normal Affect, Normal Mood Skin Exam: Warm, Dry, Intact, Normal Color, No Rash #1 Interpretation EKG Date: 07/22/20 Time: 08:02 Rhythm: NSR Rate (Beats/Min): 84 [place]: Normal P-Wave: Present QRS: Normal ST-T: Other (Nonspecific T wave flattening aVL) QT: Normal EKG Interpretation Comments: Normal ECG Course - Vital Signs Last Recorded V/S: Last Vital Signs Temp 36.6 C 07/22/20 10:02 Pulse 94 07/22/20 10:02 Resp 20 07/22/20 10:02 BP 152/95 H 07/22/20 10:02 Pulse Ox 96 07/22/20 10:02 - Orders/Labs/Meds Labs: Laboratory Tests 07/22/20 07/22/20 07/22/20 Range/Units 08:09 08:09 08:09 WBC 5.32 (4.23-9.07) K/mm3 RBC 5.02 (4.63-6.08) M/mm3 Hgb 15.3 (13.7-17.5) gm/dl Hct 45.2 (40.1-51.0) % MCV 90.0 (79.0-92.2) fl MCH 30.5 (25.7-32.2) pg MCHC 33.8 (32.2-35.5) g/dl RDW Std Deviation 43.3 (35.1-43.9) fL Plt Count 146 L (163-337) K/mm3 MPV 10.1 (9.4-12.3) fl Neut % (Auto) 59.7 (34.0-67.9) % Lymph % (Auto) 26.9 (21.8-53.1) % [place] % (Auto) 9.2 (5.3-12.2) % Eos % (Auto) 3.4 (0.8-7.0) Baso % (Auto) 0.6 (0.1-1.2) % Neut # (Auto) 3.18 (1.78-5.38) K/mm3 Lymph # (Auto) 1.43 (1.32-3.57) K/mm3 Hopkins # (Auto) 0.49 (0.30-0.82) K/mm3 Eos # (Auto) 0.18 (0.04-0.54) K/mm3 Baso # (Auto) 0.03 (0.01-0.08) K/mm3 PT (9.7-12.0) SECONDS INR APTT (21.7-31.4) SECONDS Sodium 140 (136-145) mEq/L Potassium 4.1 (3.5-5.1) mEq/L Chloride 104 (98-107) mEq/L Carbon Dioxide 24 (21-32) mEq/L Anion Gap 16.1 H (5-15) BUN 19 H (7-18) mg/dL Creatinine 1.2 (0.7-1.3) mg/dL Est Cr Clr Drug Dosing 84.67 mL/min Estimated GFR (MDRD) > 60 (>60) mL/min BUN/Creatinine Ratio 15.8 (14-18) Glucose 120 H (70-99) mg/dL Hemoglobin A1c ( - 5.6) % Calcium 8.1 L (8.5-10.1) mg/dL Magnesium 1.8 (1.8-2.4) mg/dL Total Bilirubin 0.9 (0.2-1.0) mg/dL AST 45 H (15-37) U/L ALT 88 H (16-63) U/L Alkaline Phosphatase 67 (46-116) U/L Lactate Dehydrogenase (85-227) U/L Troponin I < 0.017 (0.00-0.056) ng/mL C-Reactive Protein 0.4 (<1.0) mg/dL NT-Pro-B Natriuret Pep 27 (0-125) pg/mL Total Protein 7.4 (6.4-8.2) g/dl Albumin 3.6 (3.4-5.0) g/dl Globulin 3.8 gm/dL Albumin/Globulin Ratio 1.0 (1-2) 07/22/20 07/22/20 07/22/20 Range/Units 08:09 08:09 08:56 WBC (4.23-9.07) K/mm3 RBC (4.63-6.08) M/mm3 Hgb (13.7-17.5) gm/dl Hct (40.1-51.0) % MCV (79.0-92.2) fl MCH (25.7-32.2) pg MCHC (32.2-35.5) g/dl RDW Std Deviation (35.1-43.9) fL Plt Count (163-337) K/mm3 MPV (9.4-12.3) fl Neut % (Auto) (34.0-67.9) % Lymph % (Auto) (21.8-53.1) % Hopkins % (Auto) (5.3-12.2) % Eos % (Auto) (0.8-7.0) Baso % (Auto) (0.1-1.2) % Neut # (Auto) (1.78-5.38) K/mm3 Lymph # (Auto) (1.32-3.57) K/mm3 Hopkins # (Auto) (0.30-0.82) K/mm3 Eos # (Auto) (0.04-0.54) K/mm3 Baso # (Auto) (0.01-0.08) K/mm3 PT 11.0 (9.7-12.0) SECONDS INR 1.03 APTT 25.1 (21.7-31.4) SECONDS Sodium (136-145) mEq/L Potassium (3.5-5.1) mEq/L Chloride (98-107) mEq/L Carbon Dioxide (21-32) mEq/L Anion Gap (5-15) BUN (7-18) mg/dL Creatinine (0.7-1.3) mg/dL Est Cr Clr Drug Dosing mL/min Estimated GFR (MDRD) (>60) mL/min BUN/Creatinine Ratio (14-18) Glucose (70-99) mg/dL Hemoglobin A1c 5.9 H ( - 5.6) % Calcium (8.5-10.1) mg/dL Magnesium (1.8-2.4) mg/dL Total Bilirubin (0.2-1.0) mg/dL AST (15-37) U/L ALT (16-63) U/L Alkaline Phosphatase (46-116) U/L Lactate Dehydrogenase 222 (85-227) U/L Troponin I (0.00-0.056) ng/mL C-Reactive Protein (<1.0) mg/dL NT-Pro-B Natriuret Pep (0-125) pg/mL Total Protein (6.4-8.2) g/dl Albumin (3.4-5.0) g/dl Globulin gm/dL Albumin/Globulin Ratio (1-2) Meds: Medications Discontinued Medications Generic Name Dose Route Start Last Admin Trade Name Freq PRN Reason Stop Dose Admin Albuterol 0 gm 07/22/20 09:34 07/22/20 09:42 Albuterol 6.7 Gm Inhaler INH 2 inhalation Q4H PRN Administration Wheezing Albuterol/Ipratropium 3 ml 07/22/20 08:30 07/22/20 08:44 Albuterol/Ipratropium 3.0-0.5 Mg/3 Ml Neb Soln NEB 3 ml Q4H PRN Administration Shortness Of Breath/wheezing Sodium Chloride 1,000 mls @ 150 mls/hr 07/22/20 08:45 07/22/20 09:17 Normal Saline IV 150 mls/hr ASDIRECTED VENECIA Administration - Radiology Interpretation Free Text/Narrative:: 49-year-old male presents to the ED with generally not feeling well. Complains that his throat is congested and feels like it is closing in a bit. Feels very short of breath on minimal exertion. Coughed a good deal of the night last night. Denies any sputum production. No hemoptysis. No central chest pain although her discomfort in the sternal notch and upper sternum with coughing. Patient is wheezing throughout all both lung paulson on exam. He is morbidly obese. Tenderness of the abdominal wall right lower quadrant identified but no signs of intra-abdominal problems. Plan normal saline at 150 mils an hour. ECG done by triage nurse is normal. Portable chest x-ray and 1 view of the abdomen will be obtained. He will be given a DuoNeb treatment to see if this alleviates some of his throat congestion and upper chest congestion. Labs to be done to include CBC CMP ,coags and BNP and magnesium - Re-Assessments/Exams Free Text/Narrative Re-Assessment/Exam: 07/22/20 09:28 White count is normal at 5.32. The differential shows 60% neutrophils. Hemoglobin is 15.3 with a hematocrit of 45.2. MCV is normal at 90. Platelet count is slightly low at 146,000. Chemistry shows a sodium of 140 and a potassium of 4.1. Chloride is 104 the bicarb of 24. Anion gap is slightly elevated at 16.1. BUN is 19 with a creatinine of 1.2 and a GFR greater than 60. Glucose 120 with a goal hemoglobin A1c of 5.9. Calcium is 8.1 slightly low. Magnesium is 1.8. Bilirubin is 0.9 AST is mildly elevated at 45 with an ALT of 88. Alkaline phosphatase is 67. LDH is 222. Troponin I is less than 0.017 C-reactive protein 0.4 BNP 27. Total protein is 7.4 with an albumin fraction of 3.6. 07/22/20 09:36 chest x-ray reveals heart and mediastinum to be normal. There is no pneumothorax. Lung parenchyma are clear. Mild pleural thickening is noted within both lateral sides of the chest which is believed to be stable. No abnormalities within the ribs identified. Abdominal X-ray shows mild constipation. There are some round calcified nodules in the right lower quadrant and left lower quadrant. Patient reports that he has had to have intra-abdominal surgery for removal of lipoma-like mass is off of his bowel. These calcifications appear to be mesenteric seen on previous CT exam and felt to be incidental. Patient did get some relief with improved wheezing after the DuoNeb treatment. I will have respiratory therapy come and teach him how to use a hand-held albuterol metered-dose inhaler. Plan will be to place him on prednisone 20 mg twice daily for 5 days and then once in the morning only for another 5 days to relieve inflammation in his chest primarily upper bronchi. Clinically has a viral bronchitis. Departure - Departure Time of Disposition: 10:00 Disposition: Home, Self-Care 01 Condition: Fair Clinical Impression: Viral bronchitis - Discharge Information *PRESCRIPTION DRUG MONITORING PROGRAM REVIEWED*: Not Applicable *COPY OF PRESCRIPTION DRUG MONITORING REPORT IN PATIENT NATY: Not Applicable Prescriptions: predniSONE [Prednisone] 20 mg PO ASDIRECTED #15 tablet Instructions: Upper Respiratory Infection, Adult, [id number] Referrals: Jenifer Edmonds PA-C [Primary Care Provider] - Forms: ED Department Discharge Additional Instructions: Evaluation in the emergency room today in regards to diffuse upper chest and throat discomfort associated with coughing and wheezing. Cough is nonproductive. No associated fever. Chest x-ray reveals no signs of a pneumonia. Wheezing was identified throughout all lung paulson on examination particularly left lower lobe. You were treated with DuoNeb nebulized treatment in the emergency room which helped your wheezing a good deal but did not completely relieve your anterior chest discomfort which I believe is due to upper bronchospasm. Lab test revealed no evidence of heart related illness. It revealed a normal white count as well. Therefore it appears you are suffering from a viral bronchitis. Treatment is prednisone 20 mg twice daily usually with breakfast and supper for 5 days and then 1 tablet in the morning only for another 5 days. Use albuterol hand-held inhaler 2 puffs every 3-4 hours as needed for relief of upper chest discomfort and/or wheezing, shortness of breath. Abdominal pain is mostly coming from the abdominal wall with coughing. You do have bilateral month mild inguinal hernias that do not need surgical repair at this time. X-ray of the abdomen was essentially normal. Follow-up with personal care physician if any further problems occur. Expect gradual improvement over the next 4 to 5 days. Sepsis Event Note (ED) - Evaluation Sepsis Screening Result: No Definite Risk - Focused Exam Vital Signs: Vital Signs Temp Pulse Resp BP Pulse Ox Pulse Ox 07/22/20 10:02 36.6 C 94 20 152/95 H 96 07/22/20 09:43 96
[2020-07-22] MEDS ORDERED: Sodium Chloride 0.9% 1,000 ML IV SCH (08:45)
[2020-07-22 09:15] LABS: HEMOGLOBIN A1C 5.9 %
[2020-07-22] MEDS ORDERED: Albuterol 6.7 GM Inhaler INH PRN (09:34)
--- NOTE | 2020-07-22 10:22 | CR ---
Abdomen: Supine view of the abdomen was obtained. Comparison: Prior CT abdomen and pelvis study of 02/11/20. Calcifications are seen within the abdomen. These appear to be mesenteric on previous CT exam and are felt to be incidental. Phlebolith is noted within the right side of the pelvis. Bowel gas pattern is normal. No soft tissue abnormality is seen. Slight degenerative change is noted within the spine. Impression: 1. Findings which are felt to be incidental as noted above. 2. Nothing acute is appreciated. Diagnostic code #2
--- NOTE | 2020-07-22 10:43 | CR ---
Chest: Frontal view of the chest was obtained. Comparison: Prior chest x-ray of 08/28/19. Heart size and mediastinum are within normal limits. Mild pleural thickening is noted within both lateral sides of the chest which are believed to be fairly stable. Lungs show no acute parenchymal change. Slight scoliosis is noted within the spine. No acute osseous abnormality is appreciated.. Impression: 1. Pleural thickening which appears stable. 2. Nothing acute is otherwise seen. Diagnostic code #2
== END 2020-07-22 10:05 | disposition home or self-care (01) ==
LOC: JD.ED 07:50
DX: J20.8 Acute bronchitis due to other specified organisms (principal); K21.9 Gastro-esophageal reflux disease without esophagitis; I10 Essential (primary) hypertension; E66.9 Obesity, unspecified; Z68.42 Body mass index [BMI] 45.0-49.9, adult; Z88.0 Allergy status to penicillin
CPT/HCPCS: 36415; 71045; 71045-26; 74018; 74018-26; 80053; 83036; 83615; 83735; 83880; 84484; 85025; 85610; 85730; 86140; 93005; 93010; 94640; 99283; 99285-25; A9270-GY; J7030; J7620-GY

== ENCOUNTER 2020-08-21 13:22 | Emergency (ER) | payer MEDICAID ==
--- NOTE | 2020-08-21 14:28 | EDM.PDOC ---
ED HPI GENERAL MEDICAL PROBLEM - General Chief Complaint: Abdominal Pain Stated Complaint: LOW ABDOMINAL PAIN Time Seen by Provider: 08/21/20 13:44 Source of Information: Reports: Patient History Limitations: Reports: No Limitations - History of Present Illness INITIAL COMMENTS - FREE TEXT/NARRATIVE: 49 yo M presents with transient RLQ pain. States he ate a lot of fruit for salome ch. After that, he had a sudden episode of severe pain in his RLQ. It resolved after 10 minutes. After that, he again felt a less severe pain in his LLQ. That also resolved. He feels fine now. No vomiting. Has been having regular/normal BM's. No fever/recent illness. He did have an abnormal CT chest recently and was told he needs a biopsy to rule out metastatic disease. He was told he had bilateral inguinal hernias on exam in the ED about a month ago. No urinary symptoms. Lower Abdomen Pain Score (Numeric/FACES): 2 - Related Data Allergies Allergy/AdvReac Type Severity Reaction Status Date / Time Penicillins Allergy Rash Verified 08/21/20 13:46 Home Meds: Home Meds Omeprazole 20 mg PO DAILY 07/22/20 [History] predniSONE [Prednisone] 20 mg PO ASDIRECTED #15 tablet 07/22/20 [Rx] Lisinopril/Hydrochlorothiazide [Lisinopril-HCTZ 10-12.5 MG] 1 tab PO DAILY 08/21/20 [History] Past Medical History HEENT History: Reports: Impaired Vision, Other (See Below) Other HEENT History: wears glasses Cardiovascular History: Reports: Hypertension, SOB on Exertion Respiratory History: Reports: SOB Gastrointestinal History: Reports: GERD Genitourinary History: Reports: Other (See Below) Other Genitourinary History: frequency with nocturia x3. 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 Musculoskeletal History: Reports: None Neurological History: Reports: Head Trauma Psychiatric History: Reports: Anxiety Endocrine/Metabolic History: Reports: Obesity/BMI 30+ Hematologic History: Reports: None Immunologic History: Reports: None Oncologic (Cancer) History: Reports: None - Infectious Disease History Infectious Disease History: Reports: C-Difficile, Chicken Pox, Influenza - Past Surgical History Head Surgeries/Procedures: Reports: None HEENT Surgical History: Reports: Tonsillectomy Cardiovascular Surgical History: Reports: None Respiratory Surgical History: Reports: None GI Surgical History: Reports: Colonoscopy, EGD, Other (See Below) Other GI Surgeries/Procedures: exploratory laparotomy- found a fat mass in small intestine, was removed 2008, lipoma removal to R groin Male Surgical History: Reports: None Endocrine Surgical History: Reports: None Neurological Surgical History: Reports: None Musculoskeletal Surgical History: Reports: None Oncologic Surgical History: Reports: None Dermatological Surgical History: Reports: None Social & Family History - Family History Family Medical History: No Pertinent Family History Cardiac: Reports: Prior Cardiac Arrest - Tobacco Use Tobacco Use Status *Q: Never Tobacco User Second Hand Smoke Exposure: No - Caffeine Use Caffeine Use: Reports: Coffee - Recreational Drug Use Recreational Drug Use: No - Living Situation & Occupation Living situation: Reports: Single Occupation: Unemployed ED ROS GENERAL - Review of Systems Review Of Systems: See Below Constitutional: Denies: Fever Respiratory: Reports: No Symptoms Cardiovascular: Reports: No Symptoms Endocrine: Reports: No Symptoms GI/Abdominal: Reports: Abdominal Pain : Reports: No Symptoms Musculoskeletal: Reports: No Symptoms Skin: Reports: No Symptoms Neurological: Reports: No Symptoms ED EXAM, GENERAL - Physical Exam Exam: See Below Exam Limited By: No Limitations General Appearance: Alert, WD/WN, No Apparent Distress Eye Exam: Bilateral Eye: Normal Inspection Ears: Normal External Exam Nose: Normal Inspection Throat/Mouth: Normal Inspection, Normal Voice Head: Atraumatic, Normocephalic Neck: Normal Inspection, Supple Respiratory/Chest: No Respiratory Distress GI/Abdominal: Soft, No Distention, Other (obese, no palpable abnormality in the RLQ or LLQ, no tenderness ) Extremities: Normal Inspection Neurological: Alert, Oriented, Normal Cognition Psychiatric: Normal Affect, Normal Mood Skin Exam: Warm, Dry, Intact Course - Vital Signs Last Recorded V/S: Last Vital Signs Temp 36.6 C 08/21/20 13:43 Pulse 106 H 08/21/20 13:43 Resp 16 08/21/20 13:43 BP 160/116 H 08/21/20 13:43 Pulse Ox 100 08/21/20 17:23 - Orders/Labs/Meds Labs: Laboratory Tests 08/21/20 08/21/20 08/21/20 Range/Units 15:20 15:20 16:15 WBC 8.78 (4.23-9.07) K/mm3 RBC 5.54 (4.63-6.08) M/mm3 Hgb 16.8 (13.7-17.5) gm/dl Hct 49.9 (40.1-51.0) % MCV 90.1 (79.0-92.2) fl MCH 30.3 (25.7-32.2) pg MCHC 33.7 (32.2-35.5) g/dl RDW Std Deviation 45.0 H (35.1-43.9) fL Plt Count 229 (163-337) K/mm3 MPV 10.2 (9.4-12.3) fl Neut % (Auto) 68.6 H (34.0-67.9) % Lymph % (Auto) 22.6 (21.8-53.1) % Rankin % (Auto) 7.4 (5.3-12.2) % Eos % (Auto) 0.6 L (0.8-7.0) Baso % (Auto) 0.5 (0.1-1.2) % Neut # (Auto) 6.03 H (1.78-5.38) K/mm3 Lymph # (Auto) 1.98 (1.32-3.57) K/mm3 Rankin # (Auto) 0.65 (0.30-0.82) K/mm3 Eos # (Auto) 0.05 (0.04-0.54) K/mm3 Baso # (Auto) 0.04 (0.01-0.08) K/mm3 Sodium 141 (136-145) mEq/L Potassium 4.4 (3.5-5.1) mEq/L Chloride 103 (98-107) mEq/L Carbon Dioxide 26 (21-32) mEq/L Anion Gap 16.4 H (5-15) BUN 18 (7-18) mg/dL Creatinine 1.3 (0.7-1.3) mg/dL Est Cr Clr Drug Dosing 78.16 mL/min Estimated GFR (MDRD) 58 (>60) mL/min BUN/Creatinine Ratio 13.8 L (14-18) Glucose 117 H (70-99) mg/dL Calcium 8.8 (8.5-10.1) mg/dL Total Bilirubin 0.8 (0.2-1.0) mg/dL AST 51 H (15-37) U/L ALT 107 H (16-63) U/L Alkaline Phosphatase 74 (46-116) U/L Total Protein 8.0 (6.4-8.2) g/dl Albumin 4.0 (3.4-5.0) g/dl Globulin 4.0 gm/dL Albumin/Globulin Ratio 1.0 (1-2) Lipase 110 (73-393) U/L Urine Color Yellow (Yellow) Urine Appearance Clear (Clear) Urine pH 6.0 (5.0-8.0) Ur Specific [place] 1.020 (1.005-1.030) Urine Protein Negative (Negative) Urine Glucose (UA) Negative (Negative) Urine Ketones Negative (Negative) Urine Occult Blood Negative (Negative) Urine Nitrite Negative (Negative) Urine Bilirubin Negative (Negative) Urine Urobilinogen 0.2 (0.2-1.0) Ur Leukocyte Esterase Negative (Negative) Urine RBC Not seen (0-5) /hpf Urine WBC 0-5 (0-5) /hpf Ur Epithelial Cells Not seen (0-5) /hpf Urine Bacteria Rare (FEW) /hpf Urine Mucus Not seen (FEW) /hpf Meds: Medications Discontinued Medications Generic Name Dose Route Start Last Admin Trade Name Freq PRN Reason Stop Dose Admin Diatrizoate Meglum/Diatrizoate Sod 90 ml 08/21/20 15:14 08/21/20 16:02 Diatrizoate Meglumine/Diatrizoate Sodium 37% 120 Ml Bottle PO 08/21/20 15:15 60 ml ONETIME ONE Administration Iopamidol 50 ml 08/21/20 15:14 08/21/20 16:02 Iopamidol 612 Mg/Ml 50 Ml Sdv IVPUSH 08/21/20 15:15 50 ml ONETIME ONE Administration Iopamidol 100 ml 08/21/20 15:14 08/21/20 16:02 Iopamidol 612 Mg/Ml 100 Ml Bottle IVPUSH 08/21/20 15:15 100 ml ONETIME ONE Administration Sodium Chloride 10 ml 08/21/20 15:14 08/21/20 16:02 Sodium Chloride 0.9% 10 Ml Syringe FLUSH 08/21/20 15:15 10 ml ONETIME ONE Administration - Re-Assessments/Exams Free Text/Narrative Re-Assessment/Exam: 08/21/20 14:32 Feels well, pain resolved, no palpable hernia at this time. No definite etiology for his very transient pain. Advised him to follow up with his primary care provider and discussed ED return precautions. 08/21/20 15:04 Pt had recurrence of pain when nurse was going to discharge him, now more predominantly on L side. Will further eval with labs and likely CT a/p. 08/21/20 17:[address] abd/pelvis shows no acute abnormalities. Patient feels better, will dc home. Departure - Departure Time of Disposition: 14:32 Disposition: Home, Self-Care 01 Clinical Impression: Abdominal pain Qualifiers: Abdominal location: right lower quadrant Qualified Code(s): R10.31 - Right lower quadrant pain - Discharge Information Instructions: Abdominal Pain, Adult, [id number] Referrals: Jenifer Edmonds PA-C [Primary Care Provider] - Forms: ED Department Discharge Additional Instructions: 1. If pain recurs, return to the ED if it lasts for more than 30 minutes or so. 2. Follow up with your primary care provider for further care. 3. Also return to the ED if you develop any new concerning symptoms, such as fever, vomiting, difficulty breathing, or other concerning symptoms. Sepsis Event Note (ED) - Evaluation Sepsis Screening Result: No Definite Risk - Focused Exam Vital Signs: Vital Signs Temp Pulse Resp BP Pulse Ox 08/21/20 17:23 100 08/21/20 13:43 36.6 C 106 H 16 160/116 H 94 L
[2020-08-21] MEDS ORDERED: Diatrizoate Meglumine/Diatrizoate Sodium 37% 120 ML Bottle PO ONE (15:14)
[2020-08-21] MEDS ORDERED: Iopamidol 612 MG/ML 100 ML Bottle IVPUSH ONE (15:14)
[2020-08-21] MEDS ORDERED: Iopamidol 612 MG/ML 50 ML SDV IVPUSH ONE (15:14)
[2020-08-21] MEDS ORDERED: Sodium Chloride 0.9% 10 ML Syringe FLUSH ONE (15:14)
--- NOTE | 2020-08-21 16:28 | CT ---
CT abdomen and pelvis Technique: Multiple axial sections were obtained from above the dome of the diaphragm inferiorly through the pubic symphysis. Intravenous and oral contrast was utilized. Delayed images were also obtained through the abdomen and pelvis. Reconstructed coronal and sagittal images were also obtained. Comparison: Prior CT abdomen and pelvis study of 02/11/20. Findings: Visualized lung bases show nothing acute. Stable pleural thickening is noted. Severe fatty infiltration is seen within the liver. Liver is also somewhat enlarged. Spleen measures at the upper limits of normal at 13.6 cm which is a stable finding. Minimal accessory splenic tissue is also noted which is stable. Adrenal glands show no nodule. Pancreas shows no discrete abnormality. Kidneys show symmetric contrast enhancement. Cyst is noted within the left kidney measuring approximately 4.4 cm. Smaller cyst is also seen within the left kidney measuring 7 mm. Abdominal aorta shows no aneurysm. No retroperitoneal adenopathy is seen. No mesenteric abnormalities are noted. Several scattered small mesenteric calcifications are seen which are stable. Ureters show no dilatation. No pelvic mass or adenopathy is seen. No bowel abnormality is appreciated. Appendix is seen which is normal in size. Delayed images show contrast excretion into both ureters which show no dilatation. Contrast is noted within the bladder. Bone window settings were reviewed which show mild scattered degenerative change within the spine. No acute osseous abnormality is appreciated. Impression: 1. Fatty infiltration within the liver. Spleen size measures at the upper limits of normal. 2. Other findings as noted above. Nothing acute is appreciated on CT study of the abdomen and pelvis. Diagnostic code #3
== END 2020-08-21 17:20 | disposition home or self-care (01) ==
LOC: JD.ED 13:22
DX: R10.31 Right lower quadrant pain (principal); K21.9 Gastro-esophageal reflux disease without esophagitis; I10 Essential (primary) hypertension; E66.9 Obesity, unspecified; Z68.41 Body mass index [BMI] 40.0-44.9, adult; Z79.899 Other long term (current) drug therapy
CPT/HCPCS: 36415; 74177; 80053; 81001; 83690; 85025; 99284; Q9963; Q9967

== ENCOUNTER 2020-11-28 13:21 | Emergency (ER) | payer MEDICAID ==
--- NOTE | 2020-11-28 15:47 | CT ---
Head CT Technique: Multiple axial sections through the brain were obtained. Intravenous contrast was not utilized. Reconstructed coronal and sagittal images were obtained. Comparison: No prior intracranial imaging is available. Findings: Ventricles along with basal cisterns and sulci over the convexities are within normal limits for the patient's age. No abnormal parenchymal densities are seen. No evidence of intracranial hemorrhage is seen. No midline shift or mass-effect is seen. Bone window settings show the visualized mastoid sinuses and paranasal sinuses to appear clear. No abnormal soft tissue densities are seen around the ossicular masses. No acute calvarial abnormality is appreciated. Impression: 1. Nothing acute is seen on noncontrast head CT study. Diagnostic code #1
--- NOTE | 2020-11-28 16:34 | EDM.PDOC ---
ED HPI GENERAL MEDICAL PROBLEM - General Chief Complaint: ENT Problem Stated Complaint: EAR PAIN Time Seen by Provider: 11/28/20 14:31 Source of Information: Reports: Patient History Limitations: Reports: No Limitations - History of Present Illness INITIAL COMMENTS - FREE TEXT/NARRATIVE: 50-year-old male presents the emergency department today with complaints of right ear pain and decreased hearing in the left ear. Patient states that he has a history of ringing in his ears for the past 25 years. He states he has not sought medical treatment for the complaint. He states that over the past couple of days he has developed pain within his right ear canal. He states he woke this morning and was noted to have decreased hearing to the left ear. He states that if he cups his left ear is that his hearing feels normal but otherwise it is diminished. He denies any recent fever, chills, nausea, vomiting or diarrhea. He denies any blurred vision or double vision. He states he did wake with a dull headache to his posterior skull this morning. Right Ear Pain Score (Numeric/FACES): 7 - Related Data Allergies Allergy/AdvReac Type Severity Reaction Status Date / Time Penicillins Allergy Rash Verified 11/28/20 13:58 Home Meds: Home Meds Omeprazole 20 mg PO DAILY 07/22/20 [History] predniSONE [Prednisone] 20 mg PO ASDIRECTED #15 tablet 07/22/20 [Rx] Lisinopril/Hydrochlorothiazide [Lisinopril-HCTZ 10-12.5 MG] 1 tab PO DAILY 08/21/20 [History] Past Medical History HEENT History: Reports: Impaired Vision, Other (See Below) Other HEENT History: wears glasses Cardiovascular History: Reports: Hypertension, SOB on Exertion Respiratory History: Reports: SOB Gastrointestinal History: Reports: GERD Genitourinary History: Reports: Other (See Below) Other Genitourinary History: frequency with nocturia x3. 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 Musculoskeletal History: Reports: None Neurological History: Reports: Head Trauma Psychiatric History: Reports: Anxiety Endocrine/Metabolic History: Reports: Obesity/BMI 30+ Hematologic History: Reports: None Immunologic History: Reports: None Oncologic (Cancer) History: Reports: None - Infectious Disease History Infectious Disease History: Reports: C-Difficile, Chicken Pox, Influenza - Past Surgical History Head Surgeries/Procedures: Reports: None HEENT Surgical History: Reports: Tonsillectomy Cardiovascular Surgical History: Reports: None Respiratory Surgical History: Reports: None GI Surgical History: Reports: Colonoscopy, EGD, Other (See Below) Other GI Surgeries/Procedures: exploratory laparotomy- found a fat mass in small intestine, was removed 2008, lipoma removal to R groin Male Surgical History: Reports: None Endocrine Surgical History: Reports: None Neurological Surgical History: Reports: None Musculoskeletal Surgical History: Reports: None Oncologic Surgical History: Reports: None Dermatological Surgical History: Reports: None Social & Family History - Family History Family Medical History: No Pertinent Family History Cardiac: Reports: Prior Cardiac Arrest - Tobacco Use Tobacco Use Status *Q: Never Tobacco User Second Hand Smoke Exposure: No - Caffeine Use Caffeine Use: Reports: Coffee, Soda - Recreational Drug Use Recreational Drug Use: No - Living Situation & Occupation Living situation: Reports: Single Occupation: Unemployed ED ROS ENT - Review of Systems Review Of Systems: Comprehensive ROS is negative, except as noted in HPI. ED EXAM, ENT - Physical Exam Exam: See Below General Appearance: Alert, WD/WN, No Apparent Distress Eye Exam: Bilateral Eye: EOMI, PERRL Ears: Normal External Exam, Normal Canal, Normal TMs. No: Hearing Grossly Normal (Decreased hearing in the left ear) Nose: Normal Inspection Mouth/Throat: Normal Inspection Head: Atraumatic, Normocephalic Neck: Normal Inspection, Supple Respiratory/Chest: No Respiratory Distress Cardiovascular: Normal Peripheral Pulses, Regular Rate, Rhythm GI/Abdominal: No Distention (Male) Exam: Deferred Rectal (Males) Exam: Deferred Back: Normal Inspection Extremities: Normal Inspection Neurological: Alert, Oriented, CN II-XII Intact, Normal Cognition Psychiatric: Normal Affect, Normal Mood Skin: Warm, Dry, Intact, Normal Color, No Rash Lymphatic: No Adenopathy Course - Vital Signs Text/Narrative:: As stated above, patient presents with pain to his right ear and decreased hearing to his left ear. Upon physical exam, full neuro exam is unremarkable. I am unable to visualize tympanic membrane in the right ear due to occlusion with wax. Left ear canal and tympanic membrane are unremarkable. I have ordered for nursing staff to clean the patient's ears and then I will reevaluate. We will also order a head CT. Last Recorded V/S: Last Vital Signs Temp 97.3 F 11/28/20 13:55 Pulse 105 H 10/08/21 13:55 Resp 18 11/28/20 13:55 BP 149/90 H 11/28/20 13:55 Pulse Ox 94 L 11/28/20 13:55 - Orders/Labs/Meds Orders: Active Orders 24 hr Category Date Time Status Ear Irrigation [RC] ASDIRECTED Care 11/28/20 15:07 Active - Re-Assessments/Exams Free Text/Narrative Re-Assessment/Exam: 11/28/20 16:[address]: 1. Nothing acute is seen on noncontrast head CT study. Reevaluation of patient's tympanic membranes: Right tympanic membrane is unremarkable as well as the left. It is unclear to me why the patient is having pain in the right ear or decreased hearing on the left. Recommend that he take Tylenol or ibuprofen for discomfort of right ear. Should his condition not resolve over the next few days, recommend that he follow-up with an school teacher to evaluate hearing loss in the left ear. Patient is agreeable to this plan of care. He will be discharged home. Departure - Departure Time of Disposition: 16:35 Disposition: Home, Self-Care 01 Condition: Good Clinical Impression: Right ear pain Hearing loss, left Qualifiers: Hearing loss type: unspecified Qualified Code(s): H91.92 - Unspecified hearing loss, left ear - Discharge Information Referrals: Marysol Hartmann, CLICKING MACHINE OPERATOR [Primary Care Provider] - Additional Instructions: You were seen in the emergency department today with complaints of pain to your right ear as well as hearing loss noted to your left ear and a slight headache. Evaluation of your ears did show your right ear was impacted with wax. Reevaluation was unremarkable. Evaluation of the left ear was unremarkable as well. CT scan of the head was completed and this was normal. As discussed, I do not know why you are having ear pain or hearing loss to the left ear. If this does not resolve over the course the next few days, I recommend that you follow-up with an school teacher for further evaluation of your hearing loss and ear pain. Should your condition worsen or change, do not hesitate returning to the emergency department. Sepsis Event Note (ED) - Evaluation Sepsis Screening Result: No Definite Risk - Focused Exam Vital Signs: Vital Signs Temp Pulse Resp BP Pulse Ox 11/28/20 13:55 97.3 F 105 H 18 149/90 H 94 L - My Orders Last 24 Hours: My Active Orders 11/28/20 15:07 Ear Irrigation [RC] ASDIRECTED - Assessment/Plan Last 24 Hours: My Active Orders 11/28/20 15:07 Ear Irrigation [RC] ASDIRECTED
== END 2020-11-28 17:15 | disposition home or self-care (01) ==
LOC: JD.ED 13:21
DX: H92.01 Otalgia, right ear (principal); H91.92 Unspecified hearing loss, left ear; I10 Essential (primary) hypertension; K21.9 Gastro-esophageal reflux disease without esophagitis; E66.9 Obesity, unspecified; Z68.42 Body mass index [BMI] 45.0-49.9, adult; Z88.0 Allergy status to penicillin; Z79.899 Other long term (current) drug therapy
CPT/HCPCS: 70450; 70450-26; 99283-25

== ENCOUNTER 2021-04-04 15:14 | Emergency (ER) | payer MEDICAID ==
[2021-04-04] MEDS ORDERED: Ketorolac 60 MG/2 ML SDV IM ONE (16:25)
== END 2021-04-04 16:35 | disposition home or self-care (01) ==
LOC: JD.ED 15:14
DX: S93.402A Sprain of unspecified ligament of left ankle, initial encounter (principal); I10 Essential (primary) hypertension; K21.9 Gastro-esophageal reflux disease without esophagitis; E66.9 Obesity, unspecified; Z68.42 Body mass index [BMI] 45.0-49.9, adult; Z88.0 Allergy status to penicillin; Z79.899 Other long term (current) drug therapy; X50.1XXA Overexertion from prolonged static or awkward postures, initial encounter
CPT/HCPCS: 73610; 96372; 99283; J1885; 99284

== ENCOUNTER 2021-10-08 06:38 | Day surgery (SDC) | payer MEDICAID ==
[~2021-10-08 06:38] MED LIST changes: +Bupivacaine 0.25% 10 ML SDV ONE; +Lidocaine 1% 30 ML SDV ONE; +Sodium Chloride 0.9% 10 ML Syringe FLUSH SCH
[2021-10-08] MEDS ORDERED: Propofol 200 MG/20 ML SDV ONE (06:48)
[2021-10-08] MEDS ORDERED: fentaNYL 100 MCG/2 ML SDV ONE (06:49)
[2021-10-08] MEDS ORDERED: Midazolam 1 MG/ML 2 ML SDV ONE (06:49)
[2021-10-08] MEDS ORDERED: Lidocaine 1% 2 ML ONE (06:51)
[2021-10-08] MEDS ORDERED: HYDROmorphone 0.5 MG/0.5 ML Syringe IVPUSH PRN (06:57)
[2021-10-08] MEDS ORDERED: Ondansetron 4 MG/2 ML SDV IVPUSH PRN (06:57)
[2021-10-08] MEDS ORDERED: fentaNYL 100 MCG/2 ML SDV IVPUSH PRN (06:57)
== END 2021-10-08 08:45 | disposition home or self-care (01) ==
LOC: JD.SDS 06:38
PROVIDERS: ATTEND Orthopaedic Surgery
DX: G56.12 Other lesions of median nerve, left upper limb (principal); G56.02 Carpal tunnel syndrome, left upper limb; I10 Essential (primary) hypertension; E78.1 Pure hyperglyceridemia; E04.0 Nontoxic diffuse goiter; E66.01 Morbid (severe) obesity due to excess calories; Z88.0 Allergy status to penicillin; Z79.899 Other long term (current) drug therapy; Z98.890 Other specified postprocedural states; Z68.42 Body mass index [BMI] 45.0-49.9, adult
CPT/HCPCS: 64721; J2250; J2704; J3010; J3490; J7120

== ENCOUNTER 2022-08-19 16:15 | Emergency (ER) | payer MEDICAID ==
[2022-08-19] MEDS ORDERED: Potassium Chloride 20 MEQ Tab.ER PO ONE (16:45)
[2022-08-19] MEDS ORDERED: Sodium Chloride 0.9% 1,000 ML IV ONE (16:57)
[2022-08-19] MEDS: Potassium Chloride 10 MEQ in Premix Bag 1 BAG IV SCH ×4 (17:08→21:19)
== END 2022-08-19 22:26 | disposition home or self-care (01) ==
LOC: JD.ED 16:15
DX: E87.6 Hypokalemia (principal); I10 Essential (primary) hypertension; K21.9 Gastro-esophageal reflux disease without esophagitis; E66.9 Obesity, unspecified; Z88.0 Allergy status to penicillin; Z68.42 Body mass index [BMI] 45.0-49.9, adult
CPT/HCPCS: 96365; 96366; 99284; A9270; J3480; J7030; 99283

== ENCOUNTER 2022-11-07 10:43 | Emergency (ER) | payer MEDICAID ==
[2022-11-07] MEDS ORDERED: Sodium Chloride 0.9% 10 ML Syringe FLUSH PRN (11:11)
[2022-11-07 11:22] LABS: BASOPHILS ABSOLUTE AUTO 0.1 K/mm3 (0.0-0.2); BASOPHILS PERCENT AUTO 1.1 % (0.0-1.0); EOSINOPHILS ABSOLUTE AUTO 0.4 K/mm3 (0.0-0.4); EOSINOPHILS PERCENT AUTO 6.5 % (0.0-6.0); HEMATOCRIT 43.9 % (42.0-52.0); HEMOGLOBIN 14.8 gm/dl (14.0-18.0); IMMATURE GRAN ABSOLUTE AUTO 0.02 K/mm3 (0.00-0.05); IMMATURE GRAN PERCENT AUTO 0.4 % (0.0-0.4); LYMPHOCYTES ABSOLUTE AUTO 1.4 K/mm3 (1.0-4.8); LYMPHOCYTES PERCENT AUTO 24.2 % (24.0-44.0); MEAN CORPUSCULAR HEMOGLOBIN 30.8 pg (28.0-32.0); MEAN CORPUSCULAR HGB CONC 33.7 g/dl (32.0-36.0); MEAN CORPUSCULAR VOLUME 91.5 fl (83.0-99.0); MEAN PLATELET VOLUME 9.5 fl (9.4-12.4); MONOCYTES ABSOLUTE AUTO 0.4 K/mm3 (0.0-0.8); MONOCYTES PERCENT AUTO 7.2 % (0.0-8.0); NEUTROPHILS ABSOLUTE AUTO 3.4 K/mm3 (1.8-7.7); NEUTROPHILS PERCENT AUTO 60.6 % (41.0-71.0); PLATELET COUNT,PLT 166 K/mm3 (150-400); WHITE BLOOD CELL COUNT,WBC 5.66 K/mm3 (3.9-11.3)
[2022-11-07 11:47] LABS: A/G RATIO 0.8 (1-2); ALBUMIN 3.3 g/dl (3.4-5.0); BILIRUBIN TOTAL 0.5 mg/dL (0.2-1.0); BUN/CREATININE RATIO 12.5 (14-18); C-REACTIVE PROTEIN 0.4 mg/dL (<1.0); CALCIUM 8.9 mg/dL (8.5-10.1); CREATININE 1.2 mg/dL (0.7-1.3); EST CRCL DRUG DOSING (CG) 82.77 mL/min; PROTEIN TOTAL,TP 7.3 g/dl (6.4-8.2)
[2022-11-07 12:56] LABS: APPEARANCE,URINE CLOUDY (Clear); BILIRUBIN,URINE NEGATIVE (Negative); COLOR,URINE OTHER (Yellow); GLUCOSE,URINE NEGATIVE (Negative); KETONES,URINE NEGATIVE (Negative); LEUKOCYTE ESTERASE,URINE NEGATIVE (Negative); NITRITE,URINE NEGATIVE (Negative); OCCULT BLOOD,URINE NEGATIVE (Negative); PH,URINE 5.5 (5.0-8.0); PROTEIN,URINE NEGATIVE (Negative); UROBILINOGEN,URINE 0.2 (0.2-1.0)
[2022-11-07 13:13] LABS: BACTERIA,URINE FEW /hpf (FEW); MUCUS,URINE FEW /hpf (FEW); RBC,URINE 0-5 /hpf (0-5); SQUAMOUS EPITHELIAL CELLS,UR NOT SEEN /hpf (0-5); WBC,URINE 0-5 /hpf (0-5)
== END 2022-11-07 13:37 | disposition home or self-care (01) ==
LOC: JD.ED 10:43
DX: R10.11 Right upper quadrant pain (principal); M54.9 Dorsalgia, unspecified; I10 Essential (primary) hypertension; E66.9 Obesity, unspecified; Z79.899 Other long term (current) drug therapy; Z88.0 Allergy status to penicillin
CPT/HCPCS: 36415; 76705; 76705-26; 80053; 81001; 83690; 85025; 86140; 99284

== ENCOUNTER 2023-11-10 06:53 | Day surgery (SDC) | payer MEDICAID ==
[~2023-11-10 06:53] MED LIST changes: -Bupivacaine 0.25% 10 ML SDV ONE; -Lactated Ringers 1,000 ML IV SCH; -Lidocaine 1% 30 ML SDV ONE; -Lidocaine 1%/Sod Bicarbonate in NS 8.4% 1 ML Syringe IDERM PRN; +dexmedeTOMIDine HCl 200 MCG/2 ML SDV ONE
[2023-11-10] MEDS ORDERED: fentaNYL 100 MCG/2 ML SDV IVPUSH PRN (06:57)
[2023-11-10] MEDS ORDERED: HYDROmorphone 0.5 MG/0.5 ML Syringe IVPUSH PRN (06:57)
[2023-11-10] MEDS ORDERED: Ondansetron 4 MG/2 ML SDV IVPUSH PRN (06:57)
[2023-11-10] MEDS: Lactated Ringers 1,000 ML IV SCH (07:10)
[2023-11-10] MEDS ORDERED: Propofol 200 MG/20 ML SDV ONE (07:40)
== END 2023-11-10 09:02 | disposition home or self-care (01) ==
LOC: JD.SDS 06:53
PROVIDERS: ATTEND Surgery
DX: K29.50 Unspecified chronic gastritis without bleeding (principal); K29.80 Duodenitis without bleeding; I10 Essential (primary) hypertension; K21.9 Gastro-esophageal reflux disease without esophagitis; E03.9 Hypothyroidism, unspecified; E78.1 Pure hyperglyceridemia; E66.01 Morbid (severe) obesity due to excess calories; Z79.890 Hormone replacement therapy; Z79.899 Other long term (current) drug therapy; Z88.0 Allergy status to penicillin
CPT/HCPCS: 43239; J2704; J7120; 00731; J3490